=== PATIENT | female | born 1995 | race Caucasian/White ===

== ENCOUNTER 2024-11-12 08:08 | Inpatient (IN) | payer OTHER ==
[2024-11-12] MEDS: ELECTROLYTE-148 SOLN 1,000 ML IV SCH ×2 (09:00→15:36)
[2024-11-12 09:27] LABS: ABSOLUTE IMMATURE GRANULOCYTES 0.11 x10^3/uL (0.0-0.031); BASOPHILS # 0.04 x10^3/uL (0.01-0.08); EOSINOPHIL % 0.7 % (0.7-5.8); EOSINOPHILS # 0.06 x10^3/uL (0.04-0.36); MCHC 32.4 g/dl (32.2-35.5); MEAN CELL VOLUME 89.8 fl (79.4-94.8); MEAN PLT VOLUME 9.9 fl (9.4-12.3); MONOCYTE # 0.76 x10^3/uL (0.24-0.86); MONOCYTE % 8.5 % (4.7-12.5); RDW 13.9 % (12.1-16.8)
[2024-11-12 09:32] VITALS: BMI 37.2
[2024-11-12 09:45] LABS: ACTIVATED PTT 26.9 SECONDS (25.2-36.5); INR 0.85 (0.83-1.09); PROTHROMBIN TIME (PATIENT) 9.4 SEC (9.7-13.0)
[2024-11-12 09:50] LABS: CO2 21.0 mmol/L (21-32)
[2024-11-12 09:51] LABS: GLUCOSE,RANDOM 81.0 mg/dL (74-106)
[2024-11-12 09:54] LABS: CREATININE 0.6 mg/dL (0.55-1.3)
[2024-11-12] MEDS: DINOPROSTONE 10 MG VAGINAL SUPPOSITORY VG ONE (11:37)
[2024-11-13] MEDS ORDERED: OXYTOCIN 30 UNITS in 0.9% NS 30 UNIT/500 ML INFUS.BAG IVPB ONE (01:06)
[2024-11-13] MEDS: OXYTOCIN 30 UNITS in 0.9% NS 30 UNIT/500 ML INFUS.BAG IVPB SCH (01:10)
[2024-11-13] MEDS ORDERED: AMPICILLIN SODIUM 1 GM VIAL ONE (13:05)
[2024-11-13] MEDS: AMPICILLIN - 1 GM in SODIUM CHLORIDE 100 ML IVPB SCH (13:11)
[2024-11-13] MEDS ORDERED: OXYTOCIN 20 UNITS in 0.9% NS 20 UNIT/1,000 ML INFUS.BAG IV ONE (16:39)
[2024-11-13] MEDS ORDERED: LIDOCAINE HCL 1% PRESERVATIVE FREE - 30ML VIAL ONE (16:39)
[2024-11-13] MEDS: TRANEXAMIC ACID 1000 MG/10 ML VIAL IVPUSH ONE (17:18)
[2024-11-13] MEDS ORDERED: METHYLERGONOVINE MALEATE 0.2 MG/1 ML AMP IM PRN (17:35)
[2024-11-13] MEDS ORDERED: BISACODYL 10 MG SUPP.RECT RC PRN (17:35)
[2024-11-13] MEDS ORDERED: BENZOCAINE 28 GM HEMORRHOIDAL OINTMENT TP PRN (17:35)
[2024-11-13] MEDS ORDERED: ACETAMINOPHEN 325 MG TABLET (FP) ONE (18:03)
[2024-11-13] MEDS: ACETAMINOPHEN 325 MG TABLET (FP) PO PRN (18:04)
[2024-11-13] MEDS: OXYTOCIN 20 UNITS in 0.9% NS 20 UNIT/1,000 ML INFUS.BAG IV SCH (18:06)
[2024-11-14] MEDS: BENZOCAINE 20% 57 GM BOTTLE TP PRN (00:53)
[2024-11-14] MEDS: WITCH HAZEL 50% (TUCKS) 40 PAD/JAR PAD TP PRN (00:53)
[2024-11-14 08:08] LABS: ABSOLUTE IMMATURE GRANULOCYTES 0.12 x10^3/uL (0.0-0.031); BASOPHILS # 0.05 x10^3/uL (0.01-0.08); EOSINOPHIL % 0.4 % (0.7-5.8); EOSINOPHILS # 0.06 x10^3/uL (0.04-0.36); MCHC 33.0 g/dl (32.2-35.5); MEAN CELL VOLUME 91.1 fl (79.4-94.8); MEAN PLT VOLUME 9.8 fl (9.4-12.3); MONOCYTE # 1.12 x10^3/uL (0.24-0.86); MONOCYTE % 7.9 % (4.7-12.5); RDW 14.0 % (12.1-16.8)
[2024-11-14] MEDS: IBUPROFEN 600 MG TABLET (FP) PO PRN (08:50)
[2024-11-14] MEDS: FERROUS SO4 325 MG TABLET (FP) PO SCH (08:50)
[2024-11-14] MEDS: PRENATAL VITAMINS W/ FOLIC ACID TABLET (FP) PO SCH (10:49)
[2024-11-14] MEDS: SENNOSIDES/DOCUSATE COMBO (SENNA PLUS) TABLET (UD) PO PRN (21:13)
[2024-11-14 22:33] VITALS: RESP 18
[2024-11-15 10:36] VITALS: BP 113/77; PULSE 78; TEMP 98
== END 2024-11-15 12:00 | disposition home or self-care (01) | DRG 560 ==
LOC: JLDR 08:08 → J3W 11-13 20:32
PROVIDERS: ADMIT Obstetrics & Gynecology Obstetrics; ATTEND Obstetrics & Gynecology Obstetrics
PROC: 3E0P7VZ Introduction of Hormone into Female Reproductive, Via Natural or Artificial Opening (ICD-10-PCS; 2024-11-12)
PROC: 10E0XZZ Delivery of Products of Conception, External Approach (ICD-10-PCS; principal; 2024-11-13)
DX: O48.0 Post-term pregnancy (principal); Z3A.41 41 weeks gestation of pregnancy; Z37.0 Single live birth
CPT/HCPCS: 36415; 59409; 80048; 85025; 85610; 85730; 86780; 86850; 86900; 86901